=== PATIENT | female | born 1960 | race African-American/Black ===

== ENCOUNTER 2021-03-08 20:41 | Emergency (ER) | payer OTHER, SELFPAY ==
--- NOTE | ~2021-03-08 | CT_ITS ---
EXAMINATION: CT HEAD WITHOUT CONTRAST CT CERVICAL SPINE WITHOUT CONTRAST CLINICAL INFORMATION: Status post fall COMPARISON: None. TECHNIQUE: Multidetector CT imaging of the head and cervical spine was performed without the use of intravenous contrast. Multiplanar reformats are reviewed. This CT examination was performed using dose optimization techniques as appropriate, variously including the following: *Automated exposure control *Adjustment of mA and/or kV according to patient size (this includes techniques or standardized protocols for targeted exams where dose is matched to indication/reason for exam; i.e. extremities or head) *Use of iterative reconstruction technique DLP: 1318 mGy-cm. FINDINGS: There is no evidence of acute intracranial hemorrhage or territorial infarction. No abnormal mass effect or midline shift is seen. Miranda to white matter differentiation is well preserved. No extra-axial fluid collections are identified. The ventricles are normal in size. There is no abnormal attenuation within the brain parenchyma. The osseous structures and soft tissues are normal. The mastoid air cells and visualized portions of the paranasal sinuses are well-aerated. Atlantooccipital alignment is maintained. The vertebral bodies and posterior elements align normally. No acute fracture or subluxation. Vertebral body heights are maintained. Small endplate ossified is present at C6-C7. The cervicomedullary junction and spinal cord are grossly unremarkable. The paraspinal soft tissues are unremarkable. The imaged lung apices are clear CT/CT head/brain wo con IMPRESSION: No acute intracranial pathology. No cervical spine fracture or malalignment.
--- NOTE | ~2021-03-08 | CT_ITS ---
EXAMINATION: CT HEAD WITHOUT CONTRAST CT CERVICAL SPINE WITHOUT CONTRAST CLINICAL INFORMATION: Status post fall COMPARISON: None. TECHNIQUE: Multidetector CT imaging of the head and cervical spine was performed without the use of intravenous contrast. Multiplanar reformats are reviewed. This CT examination was performed using dose optimization techniques as appropriate, variously including the following: *Automated exposure control *Adjustment of mA and/or kV according to patient size (this includes techniques or standardized protocols for targeted exams where dose is matched to indication/reason for exam; i.e. extremities or head) *Use of iterative reconstruction technique DLP: 1318 mGy-cm. FINDINGS: There is no evidence of acute intracranial hemorrhage or territorial infarction. No abnormal mass effect or midline shift is seen. Miranda to white matter differentiation is well preserved. No extra-axial fluid collections are identified. The ventricles are normal in size. There is no abnormal attenuation within the brain parenchyma. The osseous structures and soft tissues are normal. The mastoid air cells and visualized portions of the paranasal sinuses are well-aerated. Atlantooccipital alignment is maintained. The vertebral bodies and posterior elements align normally. No acute fracture or subluxation. Vertebral body heights are maintained. Small endplate ossified is present at C6-C7. The cervicomedullary junction and spinal cord are grossly unremarkable. The paraspinal soft tissues are unremarkable. The imaged lung apices are clear CT/CT cervical spine wo con IMPRESSION: No acute intracranial pathology. No cervical spine fracture or malalignment.
--- NOTE | ~2021-03-08 | XR_ITS ---
EXAMINATION: XR FOREARM, LEFT CLINICAL INFORMATION: Pain status post fall COMPARISON: None TECHNIQUE: AP and lateral views of the left forearm were obtained. FINDINGS: The bones and soft tissues are normal. No fracture. Imaged portions of the elbow and wrist are unremarkable. XR/XR forearm LT 2V IMPRESSION: Normal left forearm.
[2021-03-08 20:50] VITALS: BP 176/84; PULSE 97; RESP 20; TEMP 36.9; O2SAT 100; BMI 42.1
--- NOTE | 2021-03-08 21:28 | ED_ITS ---
HPI - Dizziness General Chief Complaint: Fall Stated Complaint: fall dizzy Time Seen by Provider: 03/08/21 21:26 Source: patient Mode of arrival: ambulatory Limitations: no limitations History of Present Illness HPI Narrative: Patient going upstairs on escalator lost balance when almost at the top of the slurred and started falling down fell hitting her head and started feeling dizzy no other injuries no vomiting no loss of consciousness or seizures Related Data Previous Rx's Medication Instructions Recorded tramadol 50 mg tablet 50 mg PO Q6H PRN #20 tab 03/08/21 Allergies Allergy/AdvReac Type Severity Reaction Status Date / Time cefuroxime [From CEFTIN] Allergy Mild RASH Unverified 03/22/20 19:21 Review of Systems Review of Systems: Yes all other systems are reviewed and are negative [facility] Past Medical History Medical History Asthma Depression Diabetes Social History Social History Alcohol intake: never Patient Tobacco Use Status: Never used Tobacco Smoked in Last 30 Days: No Use of substances other than those prescribed or required for medical reasons: No Advance Directives: No Advance Directives Information Provided: Yes Patient : No Physical Exam Vital Signs: Vital Signs: Last Vital Signs Temp 98.2 F 03/08/21 21:48 Pulse 69 03/08/21 21:48 Resp 16 03/08/21 21:48 BP 147/67 H 03/08/21 21:48 Pulse Ox 98 03/08/21 21:48 Body Mass Index 42.1 Appearance: Alert. Oriented X3. No acute distress. Eyes: PERRLA, No Nystagmus ENT: Pharynx normal. Oral Mucosa moist Neck: Normal inspection. Neck supple. No midline tenderness good range of movement, in cervical collar CVS: Normal heart rate and rhythm. Pulses normal. Respiratory: No respiratory distress. Equal air entry bilateral, no wheezing/rales/rhonchi Abdomen: Soft and nontender. Bowel sounds are present, no mass palpable, no CVA tenderness Skin: Skin warm and dry. Normal skin color. Normal skin turgor. Extremities: No lower extremity edema. No calf tenderness, tenderness at left forearm Neuro: Oriented X 3. No motor deficit. No sensory deficit.No cerebellar signs , cranial nerves II-XII intact MDM - Dizziness MDM Narrative Medical decision making narrative: Patient status post mechanical fall CT head and C-spine negative ambulatory at the time of discharge Discharge Plan Discharge Clinical Impression: Fall (on) (from) other stairs and steps, initial encounter Patient Disposition: Home, Self-Care Instructions: Contusion in Adults (ED) Additional Instructions: Take pain medication as prescribed Apply ice Prescriptions: New tramadol 50 mg tablet 50 mg PO Q6H PRN (Reason: pain) Qty: 20 RF: 0 Interventions: ED Discharge Assessment Last Done: 03/08/21 23:59 Discharge Date/Time: 03/09/21 00:00
[2021-03-08 21:48] VITALS: BP 147/67; PULSE 69; RESP 16; TEMP 36.8; O2SAT 98
[2021-03-08] MEDS: oxyCODONE HCl Immed Release 5 MG TABLET 10 MG PO (23:43)
== END 2021-03-09 | disposition home or self-care (01) ==
PROVIDERS: Emergency Provider Internal Medicine
DX: Z04.3 Encounter for examination and observation following other accident (principal); R42 Dizziness and giddiness
CPT/HCPCS: 70450; 72125; 73090; 99284

== ENCOUNTER 2021-03-30 09:24 | Emergency (ER) | payer OTHER, SELFPAY ==
--- NOTE | ~2021-03-30 | CT_ITS ---
EXAMINATION: CT abdomen pelvis w con CLINICAL INFORMATION: Reason for Exam abd pain COMPARISON: 2017 TECHNIQUE: Multidetector volumetric imaging was performed from the superior aspect of the liver through the pubic symphysis .85 mL Omnipaque 350 injected. Sagittal and coronal reformatted images were obtained on the technologist's workstation. This CT examination was performed using dose optimization techniques as appropriate, variously including the following: *Automated exposure control *Adjustment of mA and/or kV according to patient size (this includes techniques or standardized protocols for targeted exams where dose is matched to indication/reason for exam; i.e. extremities or head) *Use of iterative reconstruction technique DLP: 1045 mGy-cm FINDINGS: LOWER THORAX: Included lung bases are clear. There is a moderate size hiatal hernia. HEPATOBILIARY: Diffusely hypodense liver suggesting hepatic steatosis. No CT evidence of focal liver lesion. GALLBLADDER: Gallbladder has been removed. Surgical clips in the gallbladder bed. SPLEEN: Spleen is normal in size. PANCREAS: No focal mass or ductal dilatation. STOMACH AND GASTROINTESTINAL TRACT: Stomach is grossly unremarkable. There is no bowel distention or thickening. No CT evidence of appendicitis. ADRENALS: No adrenal nodules. KIDNEYS/URETERS: No hydronephrosis, stones or solid mass lesions. URINARY BLADDER: Partially decompressed. PELVIC VISCERA: Bulky uterus, multiple heterogeneous uterine masses some of which are calcified, this has not changed chronic, compatible with calcified uterine fibroids. PERITONEUM: No free air or fluid. LYMPH NODES: No lymphadenopathy. VASCULAR:Abdominal aorta normal in size, no aneurysm found. BONES, ABDOMINAL WALL AND SOFT TISSUES: There is paraumbilical subcutaneous low-attenuation fluid filled structure 1.9 x 1.6 cm with Hounsfield unit attenuation of 9 suggesting fluid contents, this could be fluid-filled small periumbilical hernia, endometrioma, among others. It is situated within the subcutaneous fat abutting in close proximity to the abdominal wall. This has newly developed since prior CT. Well-defined radiolucency in the vertebral body of L2, smooth sclerotic borders, unchanged since 2017, suggesting nonaggressive bone lesion such as bone cyst. Otherwise unremarkable. CT/CT abdomen pelvis w con IMPRESSION: 1. Newly developed periumbilical 1.8 cm fluid-filled structure could be fluid-filled hernia, versus endometrioma, among others. Clinical correlation recommended, Please correlate with the area of tenderness, this could be further investigated with ultrasound and/or MRI. 2. No CT evidence of appendicitis. 3. Large bulky heterogeneous uterus with multiple uterine masses some of which are calcified probably necrotic uterine fibroids. This is chronic unchanged. 4. Diffusely hypodense liver suggesting hepatic steatosis. 5. Status post cholecystectomy.
[2021-03-30 09:31] VITALS: BP 152/90; PULSE 60; O2SAT 96
[2021-03-30 09:33] VITALS: BP 185/82; PULSE 59; RESP 18; TEMP 37; O2SAT 96; BMI 38.4
--- NOTE | 2021-03-30 10:18 | ED.ABDPAIN ---
HPI - Abdominal Pain General Chief Complaint: Abdominal Pain Stated Complaint: ABD PAIN, N/V X'S 1 DAY Time Seen by Provider: 03/30/21 10:11 History of Present Illness HPI narrative: Patient is 60-year-old female Related Data Previous Rx's Medication Instructions Recorded tramadol 50 mg tablet 50 mg PO Q6H PRN #20 tab 03/08/21 ibuprofen 400 mg tablet 400 mg PO Q6H PRN #20 tab 03/30/21 Allergies Allergy/AdvReac Type Severity Reaction Status Date / Time cefuroxime [From CEFTIN] Allergy Mild RASH Unverified 03/22/20 19:21 Physical Exam Vital Signs: Vital Signs: Last Vital Signs Temp 98.7 F 03/30/21 14:31 Pulse 60 03/30/21 14:31 Resp 20 03/30/21 14:31 BP 180/66 H 03/30/21 14:31 Pulse Ox 95 03/30/21 14:31 Body Mass Index 38.4 MDM - Abdominal Pain MDM Narrative Medical decision making narrative: CT scan of the abdomen shows fibroid uterus similar to previous likely the cause of patient's pain. Will have patient follow-up with OBGYN on an outpatient basis. Patient's white count is 12 electrolytes unremarkable otherwise well appearing. Has a small fluid collection around the umbilicus of questionable significance. Will have patient follow-up on an outpatient basis. There is no evidence for appendicitis is no obstruction is no abscess is no perforation will discharge patient home. Lab Data Result diagrams: 03/30/21 12:55 03/30/21 13:40 Labs: Lab Results 03/30/21 03/30/21 03/30/21 Range/Units 12:55 13:40 14:32 WBC 12.0 H (4.8-10.8) X10*3/uL RBC 5.15 (4.20-5.50) X10*6/uL Hgb 14.1 (12.0-16.0) g/dl Hct 43.7 (37-47) % MCV 84.9 (80-98) fL MCH 27.4 (27.0-33.0) pg MCHC 32.3 (31.0-35.0) g/dl RDW 13.2 (11.0-16.0) % Plt Count 111 L (160-400) X10*3/uL MPV Not Reportable Immature Gran % (Auto) Cancelled Neut % (Auto) Cancelled Lymph % (Auto) Cancelled Catahoula % (Auto) Cancelled Eos % (Auto) Cancelled Baso % (Auto) Cancelled Lymph # (Auto) Cancelled Catahoula # (Auto) Cancelled Eos # (Auto) Cancelled Baso # (Auto) Cancelled Abs Immat Gran (auto) Cancelled Absolute Neuts (auto) Cancelled Absolute Nucleated RBC 0.000 (0.0-0.012) X10*3/uL Nucleated RBC % (auto) 0.0 (0.0-0.2) /100WBC Neutrophils % (Manual) 85 H (45-73) % Band Neutrophils % 4 (3-5) % Lymphocytes % (Manual) 10 L (20-40) % Monocytes % (Manual) 1 L (2-11) % Abs Neuts (Manual) 10.7 H (2.2-7.9) X10*3/uL Lymphocytes # (Manual) 1.2 (0.6-4.8) X10*3/uL Monocytes # (Manual) 0.1 (0.0-1.2) X10*3/uL Platelet Estimate DECREASED (NORMAL) Large Platelets PRESENT Plt Morphology Comment NOTED RBC Morphology NOTED Ovalocytes 1+ (5-14) /OIF Acanthocytes (Spur) 3+ (>5) /OIF Sodium 138 (135-145) mmol/L Potassium 4.4 (3.3-5.1) mmol/L Chloride 107 (96-108) mmol/L Carbon Dioxide 18 L (22-29) mmol/L Anion Gap 17 (12-20) BUN 7 L (9-16) mg/dL Creatinine 0.71 (0.5-1.4) mg/dL Estim Creat Clear Calc 104.7 Estimated GFR > 60 Random Glucose 292 H (60-115) mg/dL Calcium 8.6 (8.4-10.2) mg/dL Total Bilirubin 1.0 (0.0-1.0) mg/dL AST 27 (5-31) U/L ALT 34 H (0-31) U/L Alkaline Phosphatase 73 (39-117) U/L Total Protein 7.1 (6.5-8.0) g/dL Albumin 4.1 (3.5-5.0) g/dL Urine Color YELLOW Urine Appearance CLEAR Urine pH 6.0 (5.0-8.0) Ur Specific [place] 1.025 (1.005-1.025) Urine Protein NEG (NEG-TRACE) MG/DL Urine Glucose (UA) 500 H (NEG) MG/DL Urine Ketones >=80 (NEG) MG/DL Urine Blood TRACE (NEG) Urine Nitrite NEG (NEG) Ur Leukocyte Esterase NEG (NEG) Urine RBC 1-4 (0) /HPF Urine WBC 1-4 (0-4) /HPF Ur Squamous Epith Cells 1+ /LPF Ur Renal Epithelial Cell TRACE /LPF Urine Bacteria NONE /LPF Discharge Plan Discharge Clinical Impression: Fibroid Patient Disposition: Home, Self-Care Instructions: Abdominal Pain (ED) Prescriptions: New ibuprofen 400 mg tablet 400 mg PO Q6H PRN (Reason: pain) Qty: 20 RF: 0 No Action tramadol 50 mg tablet 50 mg PO Q6H PRN (Reason: pain) Qty: 20 RF: 0 Referrals: Jero Powers MD [Physician] - 2 days Print Language: Fijian [facility] [place] Past Medical History Medical History Asthma Depression Diabetes Social History Social History Alcohol intake: never Patient Tobacco Use Status: Never used Tobacco Use of substances other than those prescribed or required for medical reasons: No Advance Directives: No Advance Directives Information Provided: Yes Patient : No
[2021-03-30] MEDS: Morphine Sulfate 4 MG/ML CARTRIDGE IVPUSH (11:41)
[2021-03-30] MEDS: ondansetron HCL 4 MG/2 ML VIAL IVPUSH (11:41)
[2021-03-30] MEDS: 0.9 % Sodium Chloride 1,000 ML 999 ML IV (11:42)
[2021-03-30 13:04] LABS: Hemoglobin 14.1 g/dl (12.0-16.0); PLT CLUMP 1; Red Cell Distribution Width 13.2 % (11.0-16.0)
[2021-03-30 13:06] LABS: Hematocrit 43.7 % (37-47); Mean Corpuscular HGB Conc 32.3 g/dl (31.0-35.0); Mean Corpuscular Hemoglobin 27.4 pg (27.0-33.0); Mean Corpuscular Volume 84.9 fL (80-98); Red Blood Count 5.15 X10*6/uL (4.20-5.50)
[2021-03-30 13:07] LABS: WBC ABN SCTR FOR CBC 1
[2021-03-30 13:44] LABS: Band Neutrophils Percent 4 % (3-5); Lymphocytes Percent Manual 10 % (20-40); Monocytes Percent Manual 1 % (2-11); Neutrophils Percent Manual 85 % (45-73)
[2021-03-30 13:45] LABS: Acanthocytes 3+ (>5) /OIF; Ovalocytes 1+ (5-14) /OIF; RBC Morphology NOTED
[2021-03-30 13:46] LABS: Large Platelet PRESENT; Platelet Estimate DECREASED (NORMAL); Platelet Morphology Comment NOTED
[2021-03-30 13:52] LABS: Lymphocytes Absolute Manual 1.2 X10*3/uL (0.6-4.8); Monocytes Absolute Manual 0.1 X10*3/uL (0.0-1.2); Neutrophils Absolute Manual 10.7 X10*3/uL (2.2-7.9); Platelet Count 111 X10*3/uL (160-400)
[2021-03-30 14:28] LABS: Alanine Aminotransferase 34 U/L (0-31); Albumin Level 4.1 g/dL (3.5-5.0); Alkaline Phosphatase 73 U/L (39-117); Anion Gap 17 (12-20); Aspartate Amino Transferase 27 U/L (5-31); Blood Urea Nitrogen 7 mg/dL (9-16); Calcium 8.6 mg/dL (8.4-10.2); Carbon Dioxide 18 mmol/L (22-29); Chloride 107 mmol/L (96-108); Creatinine Clr Calc Pharmacy 104.7; Estimated Glomerular Filt Rate > 60; Glucose Random 292 mg/dL (60-115); Potassium 4.4 mmol/L (3.3-5.1); Sodium 138 mmol/L (135-145); Total Protein 7.1 g/dL (6.5-8.0)
[2021-03-30 14:31] VITALS: BP 180/66; PULSE 60; RESP 20; TEMP 37.1; O2SAT 95
[2021-03-30 14:39] LABS: Appearance Urine CLEAR; Color Urine YELLOW; Glucose Urine UA 500 MG/DL (NEG); Leukocyte Esterase Urine NEG (NEG); Nitrite Urine NEG (NEG); Specific Gravity - Urine 1.025 (1.005-1.025); UACC Culture Trigger NO; Urine Blood TRACE (NEG); Urine Ketones >=80 MG/DL (NEG); Urine Protein NEG (NEG-TRACE)
[2021-03-30 14:59] LABS: Renal Epithelial Cells Urine TRACE /LPF; Squamous Epithelial Cell Urine 1+ /LPF
[2021-03-30] MEDS: iohexoL 350 MG/ML 100 ML INFUS..BTL IV (15:19)
[2021-03-30] MEDS: Ketorolac Tromethamine 15 MG/ML VIAL IVPUSH (17:47)
[2021-03-30] MEDS: Prochlorperazine Edisylate 10 MG/2 ML VIAL IVPUSH (17:48)
--- NOTE | 2021-03-30 17:50 | PC.NURSE ---
Pt medicated for pain and nausea. umbilcal hernia reduced by md at bedside. Pt continues to report pain and nausea. Will be sent home whit scripts for both
== END 2021-03-30 18:12 | disposition home or self-care (01) ==
PROVIDERS: Emergency Provider Emergency Medicine Emergency Medical Services; PCP Internal Medicine
DX: D25.9 Leiomyoma of uterus, unspecified (principal); R10.9 Unspecified abdominal pain; Z79.899 Other long term (current) drug therapy
CPT/HCPCS: 36415; 74177; 80053; 81001; 85007; 85027; 96361; 96374; 96375; 99284; J1885; J2270; J2405; Q9967

== ENCOUNTER 2023-07-17 13:41 | Emergency (ER) | payer OTHER, SELFPAY ==
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
[2023-07-17 14:03] VITALS: BP 147/62; BP 168/108; PULSE 67; PULSE 75; RESP 18; O2SAT 97; BMI 40.0
[2023-07-17] MEDS: Ketorolac Tromethamine 15 MG/ML VIAL IM (14:13)
[2023-07-17] MEDS: Cyclobenzaprine HCl 5 MG TABLET PO (14:13)
--- NOTE | 2023-07-17 14:16 | PC.NURSE ---
medication administered per provider order. pt awaiting to go to CT at this time.
--- NOTE | 2023-07-17 14:59 | PC.NURSE ---
pt to CT at this time.
[2023-07-17 15:48] VITALS: BP 144/64; PULSE 68; RESP 19; TEMP 36.6; O2SAT 97
== END 2023-07-17 16:15 | disposition home or self-care (01) ==
PROVIDERS: Emergency Provider Emergency Medicine
DX: S39.92XA Unspecified injury of lower back, initial encounter (principal); M54.2 Cervicalgia; R51.9 Headache, unspecified; V43.52XA Car driver injured in collision with other type car in traffic accident, initial encounter; Y93.9 Activity, unspecified; Y92.410 Unspecified street and highway as the place of occurrence of the external cause; Y99.9 Unspecified external cause status
CPT/HCPCS: 70450; 72125; 96372; 99284; J1885

== ENCOUNTER 2025-03-19 13:22 | Emergency (ER) | payer OTHER, MEDICAID, SELFPAY ==
--- NOTE | 2025-03-19 | ECG_ITS ---
Test Reason : CP Blood Pressure : */* mmHG Vent. Rate : 72 BPM Atrial Rate : 72 BPM P-R Int : 184 ms QRS Dur : 92 ms QT Int : 402 ms P-R-T Axes : 43 -2 29 degrees QTcB Int : 440 ms Normal sinus rhythm Minimal voltage criteria for LVH, may be normal variant ( R in aVL ) Borderline ECG When compared with ECG of 25-Jul-2019 20:35, No significant change was found Referred By: Generic ED Physician Electronically Signed By: JUSTIN CASTELAN
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
[2025-03-19 13:31] VITALS: BP 162/82; PULSE 67; TEMP 36.7; O2SAT 97; BMI 42.8
[2025-03-19 13:39] VITALS: BP 162/82; PULSE 70; RESP 18; TEMP 36.7; O2SAT 98
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
--- OUTSIDE RECORDS SUMMARY | 2025-03-19 13:53 | XMS_ITS | Clinical Summary ---
Author Organization [facility] ity Address [address] [place] [address] Care Team Providers Care Program Arranger Name Role Phone Unavailable Primary Care Provider Unavailabl e Social History Tobacco Use Types Packs/Day Years Used Date Smoking Tobacco: Never Assessed Comments Unknown Sex and Gender Information Value Date Recorded Sex Assigned at Not on file Legal Sex Female 5:42 PM EST Gender Identity Not on file Sexual Orientation Not on file Plan of Treatment Health Maintenance Due Date Last Done Comments Breast Cancer Screening 1960 DTaP,Tdap,and Td Vaccines (1 - Tdap) 1979 Cervical Cancer Screening: P ap Smear 1981 Pneumococcal Vaccine: 50+ Ye ars (1 of 1 - PCV) 2010 Zoster Vaccines (1 of 2) 2010 Colorectal Cancer Screening: Colonoscopy 06/07/2022 HIV Screening 06/07/2022 Hepatitis C Screening 06/07/2022 Social Influencers of Health Screening 06/07/2022 Depression Screening 07/06/2024 COVID-19 Vaccine (1 - 2023-2 5 season) 2025 Influenza Vaccine (#1) 2025 RSV Immunization Adult Patie nts (1 - 1-dose 75+ series) 2035 HIB Vaccines Aged Out No longer eligi ble based on patient's age to complete this topic HPV Vaccines Aged Out No longer eligi ble based on patient's age to complete this topic Hepatitis A Vaccines Aged Out No long er eligible based on patient's age to complete this topic Hepatitis B Vaccines Aged Out No long er eligible based on patient's age to complete this topic IPV Vaccines Aged Out No longer eligi ble based on patient's age to complete this topic MMR Vaccines Aged Out No longer eligi ble based on patient's age to complete this topic Meningococcal ACWY Vaccine Aged Out N o longer eligible based on patient's age to complete this topic Meningococcal B Vaccine Aged Out No l onger eligible based on patient's age to complete this topic RSV Immunization Patients Un jessi 20 months Aged Out No longer eligible b ased on patient's age to complete this topic Varicella Vaccines Aged Out No longer eligible based on patient's age to complete this topic
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
[2025-03-19 16:50] LABS: Alanine Aminotransferase 13 U/L (0-31); Albumin Level 3.7 g/dL (3.5-5.0); Alkaline Phosphatase 74 U/L (39-117); Anion Gap 12 (12-20); Aspartate Amino Transferase 23 U/L (5-31); Blood Urea Nitrogen 9 mg/dL (9-16); Calcium 8.8 mg/dL (8.4-10.2); Carbon Dioxide 22 mmol/L (22-29); Chloride 110 mmol/L (96-108); Creatinine Clr Calc Pharmacy 109.0; Estimated Glomerular Filt Rate > 60; Magnesium 1.7 mg/dL (1.6-2.6); Potassium 4.0 mmol/L (3.3-5.1); Sodium 140 mmol/L (135-145); Total Protein 6.7 g/dL (6.5-8.0)
[2025-03-19 18:00] VITALS: BP 189/68; PULSE 67; RESP 18; O2SAT 95
[2025-03-19 18:04] LABS: Hematocrit 38.6 % (37.0-47.0); Hemoglobin 12.6 g/dl (12.0-16.0); Imm Gran Abs Auto 0.02 X10*3/uL (0.00-0.03); Imm Gran Pct Auto 0.2 % (0.0-0.4); Lymphocytes Absolute Auto 2.8 X10*3/uL (1.2-4.9); Mean Corpuscular HGB Conc 32.6 g/dl (31.0-35.0); Mean Corpuscular Hemoglobin 27.8 pg (27.0-33.0); Mean Corpuscular Volume 85.0 fL (80.0-98.0); NRBC Abs Auto 0.000 X10*3/uL (0.0-0.012); NRBC Pct Auto 0.0 /100WBC (0.0-0.2); Platelet Count 199 X10*3/uL (160-400); Red Blood Count 4.54 X10*6/uL (4.20-5.50); White Blood Count 9.1 X10*3/uL (4.8-10.8)
[2025-03-19] MEDS: iohexoL 350 MG/ML 100 ML INFUS..BTL IV (18:09)
[2025-03-19 18:21] LABS: MANUAL DIFF FLAG NO
[2025-03-19] MEDS: diazePAM 10 MG/2 ML CARTRIDGE 5 MG IVPUSH (18:34)
[2025-03-19 21:05] VITALS: BP 168/76; PULSE 68; RESP 18; TEMP 36.6; O2SAT 97
[2025-03-19 22:45] VITALS: BP 190/81; PULSE 62; RESP 20; TEMP 36.6; O2SAT 97
[2025-03-19 23:34] VITALS: BP 144/70; PULSE 62; RESP 20; TEMP 36.6; O2SAT 97
== END 2025-03-19 23:34 | disposition home or self-care (01) ==
PROVIDERS: Emergency Provider Emergency Medicine
DX: S39.92XA Unspecified injury of lower back, initial encounter (principal); R51.9 Headache, unspecified; K44.9 Diaphragmatic hernia without obstruction or gangrene; M54.2 Cervicalgia; N60.01 Solitary cyst of right breast; R07.89 Other chest pain; M25.512 Pain in left shoulder; M25.511 Pain in right shoulder; R06.02 Shortness of breath; E11.9 Type 2 diabetes mellitus without complications; R42 Dizziness and giddiness; R05.9 Cough, unspecified; V47.5XXA Car driver injured in collision with fixed or stationary object in traffic accident, initial encounter; Y93.9 Activity, unspecified; Y92.410 Unspecified street and highway as the place of occurrence of the external cause; Y99.8 Other external cause status; Z79.899 Other long term (current) drug therapy
CPT/HCPCS: 36415; 70450; 71260; 72125; 73030; 74177; 80053; 83735; 85025; 93005; 96365; 96375; 99285; J0131; J3360; Q9967

== ENCOUNTER → 2025-03-19 13:45 | Outpatient (BNV) | payer OTHER, SELFPAY | PROVIDERS: Emergency Provider Emergency Medicine; Visit Provider Internal Medicine | DX: R07.89 Other chest pain (principal) | CPT/HCPCS: 93010 ==

== ENCOUNTER → 2025-03-19 15:21 | Outpatient (BNV) | payer OTHER, SELFPAY | PROVIDERS: Emergency Provider Emergency Medicine; Visit Provider Student in an Organized Health Care Education/Training Program | DX: M25.511 Pain in right shoulder (principal); M25.512 Pain in left shoulder; R07.89 Other chest pain; M54.2 Cervicalgia; Z03.89 Encounter for observation for other suspected diseases and conditions ruled out; Z04.3 Encounter for examination and observation following other accident | CPT/HCPCS: 70450; 71260; 72125; 73030 ==